=== PATIENT | female | born 1950 | race Caucasian/White ===

== ENCOUNTER → 2016-09-25 18:45 | Outpatient (CLI) | payer OTHER ==
[2016-03-22 12:20] VITALS: BMI 23.1
[~2016-09-25 18:45] MED LIST: BAYER CHEWABLE81 MG PO; CELEXA10 MG PO; CO Q-10100 MG PO; DIOVAN HCT 320/1 TA2 PO; ELIQUIS2.5 MG PO; HYDROCODONE-APA1 TAB PO; OYSCO 500+D TAB1 TAB PO; PERCOCET 10/3251 TA1; PERCOCET 10/3251 TA1 PO; TRAZODONE HCL150 MG PO; ZOCOR20 MG PO; ZOFRAN ODT4 MG/UDTAB PO
== END | disposition home or self-care (01) ==
LOC: D.LABREF 18:45
DX: M16.12 Unilateral primary osteoarthritis, left hip (principal); Z11.8 Encounter for screening for other infectious and parasitic diseases

== ENCOUNTER 2016-10-18 09:30 | Inpatient (IN) | payer OTHER ==
[~2016-10-18] VITALS: Ht 165.1 cm; Wt 62.7 kg
[2016-10-18 09:14] LABS: BASOPHILS 0.4 % (0.0-2.0); EOSINOPHILS 3.5 % (0-7); HEMATOCRIT 42.8 % (36.0-48.0); HEMOGLOBIN 14.6 g/dL (12-16); LYMPHOCYTES 35.1 % (15-50); MCH 31.3 pg (26.0-34.0); MCHC 34.1 g/dL (31.0-37.0); MCV 91.8 fL (80.0-100.0); MONOCYTES 6.5 % (2-11); NEUTROPHILS 54.5 % (40-80); PLATELET COUNT 232 10x3/uL (130-400); RBC 4.66 10x6/uL (4.00-5.40); RDW 13.1 % (11.5-14.5); WBC 4.8 10x3/uL (4.8-10.8)
[2016-10-18 09:21] LABS: CALC OSMOLALITY 272 mosm/kg (275-300); CALCIUM 9.7 mg/dL (8.5-10.1); CARBON DIOXIDE 29.8 mmol/L (21.0-32.0); CHLORIDE - SERUM 99 mmol/L (98-107); CREATININE - SERUM 0.5 mg/dL (0.6-1.3); GLUCOSE 97 mg/dL (74-106); POTASSIUM - SERUM 3.4 mmol/L (3.5-5.1); SODIUM 137 mmol/L (136-145); UREA NITROGEN 10 mg/dL (7-18); eGFR NON AFRICAN AMERICAN > 90 mL/min (90-120)
[~2016-10-18 09:30] MED LIST changes: -ZOFRAN ODT4 MG/UDTAB PO
[2016-10-18 09:36] LABS: APPEARANCE CLEAR (CLEAR); APTT 28.4 SECONDS (22.8-39.4); BACTERIA FEW /hpf (NONE SEEN); BILIRUBIN NEGATIVE (NEGATIVE); COLOR STRAW (YELLOW); EPITHELIAL CELLS 0-5 /hpf (0-5); GLUCOSE NEGATIVE (NEGATIVE); KETONE MODERATE mg/dL (NEGATIVE); LEUKOCYTE ESTERASE 1+ (NEGATIVE); NITRITE NEGATIVE (NEGATIVE); PROTEIN NEGATIVE (NEGATIVE); RED CELLS - URINE 0-5 /hpf (0-5); SPECIFIC GRAVITY 1.005 (1.005-1.020); UROBILINOGEN NORMAL (NORMAL); WHITE CELLS - URINE 0-5 /hpf (0-5)
[2016-10-18 09:42] LABS: INR 0.9 (0.85-1.17); PROTIME 11.9 SECONDS (11.6-15.0)
[2016-10-22] VITALS (15 sets, daily range): BP systolic 99–150; BP diastolic 54–80; Ht 165.1 cm; Wt 62.7 kg
--- NOTE | 2016-10-22 10:15 | NUR ---
PATIENT RECEIVED TO FLOOR FROM PACU VIA BED. RESPIRATIONS EVEN AND UNLABORED. VITAL SIGNS STABLE. PATIENT RESTING WITH EYES CLOSED AND WAKES EASY WHEN SPOKE TO. SIDE RAILS UP X3. BED IN LOW POSITION. ICE PACK PLACED ON LEFT HIP. SCDS PLACED BILATERALLY. USE EXPLAINED. INCENTIVE SPIROMETER PROVIDED AND USE EXPLAINED. STATES UNDERSTANDING. BED ALARM ON. CALL LIGHT IN REACH. WILL CONTINUE TO MONITOR.
--- NOTE | 2016-10-22 11:20 | NUR ---
PATIENT ALERT IN BED VISITING WITH GUESTS. RESPIRATIONS EVEN AND UNLABORED. VITAL SIGNS STABLE. DENIES NEEDS. SIDE RAILS UP X3. BED IN LOW POSITION. CALL LIGHT IN REACH. BED ALARM ON.
--- NOTE | 2016-10-22 14:20 | NUR ---
ALERT IN BED VISITING WITH FAMILY. NO SIGNS OF DISTRESS NOTED. DENIES NEEDS. SIDE RAILS UP X2. BED IN LOW POSITION. CALL LIGHT IN REACH.
--- NOTE | 2016-10-22 15:11 | OP ---
PATIENT NAME: DONY BARRIENTOS MEDICAL RECORD: [id number] :[birth year] LOCATION:[id number] ADMISSION DATE:10/22/16 SURGEON: BECK ONEAL MD DATE OF OPERATION: 10/22/2016 PREOPERATIVE DIAGNOSIS: Degenerative arthritis of the left hip. POSTOPERATIVE DIAGNOSIS: Degenerative arthritis of the left hip. PROCEDURE: Left total hip arthroplasty. SURGEON: Beck Oneal MD. ANESTHESIA: General. INTRAOPERATIVE COMPLICATIONS: None. IMPLANTS USED: [place] total hip Accolade II size 3 stem, size 52 cup with a size -2.5 ceramic Biolox head. ESTIMATED BLOOD LOSS: 100 cc. OPERATIVE SUMMARY IN DETAIL: After obtaining the appropriate preoperative orthopedic surgery consent as well as anesthetic consultation, evaluation and clearance, the patient was brought to the operating room and placed on the operating table in supine position. After adequate general laryngeal mask airway anesthesia was administered, the patient was placed in a right lateral decubitus position. All pressure points were well padded to include down leg peroneal pad as well as axillary roll. The patient was held firmly to the operating table using the vacuum pack suction system. Left lower extremity and hip were then prepped and draped in a routine sterile fashion. Curvilinear incision was made over the greater trochanter, taken down the level of the IT band, which was split in line with fibers of the IT band to reveal the gluteus medius and minimus. These were reflected anteriorly. The hip capsule was split in a T-type fashion for later reapproximation. The hip was dislocated and femoral neck cut was made using the femoral neck cutting guide. Acetabulum was exposed. Serial and sequential reaming was done for a size 52. It was put in place with good capture. Polyethylene was put into place and checked. Attention was then turned to the femur. Serial and sequential reaming and broaching were followed by placement of the size 3 femoral stem. Trials were undertaken and it was felt that -2.5 was the most appropriate. This was located in place with good fit and fill. Intraoperative radiographs were taken at this point and showed good position and placement of all components. The wound was copiously irrigated. The hip capsule was closed with #2 Ethibond followed by transosseous reapproximation of the gluteus medius and minimus back to the greater trochanter. IT band was then closed likewise with #2 Ethibond followed by #1 Vicryl, 2-0 Vicryl, and skin todd. Sterile dressings were applied. The patient was awakened, LMA was removed. She was taken to recovery room in stable condition. All final needle and sponge counts were correct. TRANSINT:[id number] Voice Confirmation ID: [id number] DOCUMENT ID: [id number] OPERATIVE REPORT [id number] DONY BARRIENTOS MD, BECK JARQUIN at 1511 CC: [id number] DICTATION DATE: 10/22/16 0942 LENS EXAMINER: 10/22/16 1123 ADM IN [facility] [address] [id number]
--- NOTE | 2016-10-22 17:09 | NUR ---
ALERT IN BED WITH FAMILY PRESENT. C/O PAIN 11/19 TO SURGICAL SITE. PERCOCET ADMINISTERED PER PRN ORDER. NO FURTHER NEEDS VOICED. SIDE RAILS UP X2. BED IN LOW POSITION. CALL LIGHT IN REACH.
--- NOTE | 2016-10-23 01:21 | NUR ---
REC'D. IN BED VISITORS AT BEDSIDE.DRSG. LEFT HIP DRY AND INTACT. MINIMAL SWELLING TO THIGH FOOT PINK AND WARM PEDAL PULSE PRESENT WIGGLES TOES AND DORSIFLEXES.NUMBNESS/CALF PAIN OR TENDERNESS.WILL CONTINUE TO MONITOR FOR ANY CHGES.AND FOLLOW CURRENT PLAN OF CARE.ENCOURAGED INCENT. SPIR. WHILE AWAKE TURNS SELF WITHOUT DIFFICULTY
[2016-10-23 04:00] VITALS: BP 98/42
--- NOTE | 2016-10-23 05:05 | NUR ---
LYING IN BED RESTING WITH EYES CLOSED, RESP WITH EASE, DSG TO L HIP CDI, FALL PRECAUTIONS IN PLACE, CL IN REACH
[2016-10-23 06:33] LABS: HEMATOCRIT 28.5 % (36.0-48.0); HEMOGLOBIN 9.4 g/dL (12-16); MCH 30.6 pg (26.0-34.0); MCV 92.8 fL (80.0-100.0); MEAN PLATELET VOLUME 10.2 fL (7.4-10.4); RBC 3.07 10x6/uL (4.00-5.40); RDW 13.4 % (11.5-14.5); WBC 7.9 10x3/uL (4.8-10.8)
--- NOTE | 2016-10-23 07:20 | NUR ---
PATIENT RECEIVED ALERT IN LOW [place] POSITION. NO SIGNS OF DISTRESS NOTED. AT BEDSIDE. DENIES PAIN. SIDE RAILS UP X3. BED IN LOW POSITION. CALL LIGHT IN REACH.
--- NOTE | 2016-10-23 08:23 | NUR ---
PATIENT ALERT IN BED EATING BREAKFAST. NO SIGNS OF DISTRESS NOTED. SCHEDULED MEDICATION ADMINISTERED WELL PRN PERCOCET. NO FURTHER NEEDS VOICED. SIDE RAILS UP X2. BED IN LOW POSITION. CALL LIGHT IN REACH.
--- NOTE | 2016-10-23 08:24 | NUR ---
* Is the patient Alert and Oriented? Yes 0 * How many steps to enter\exit or inside your home? 2 0 * PCP ALEXANDER [address] 0 * Pharmacy [facility] in [place] 0 * Preadmission Environment Home with Family 0 * ADLs Independent 0 * Equipment Crutch Rolling Walker 0 * List name and contact numbers for known caregivers / representatives who currently or will assist patient after discharge: Spouse - Phong Walker [phone] Daughter - Jessica Paniagua [phone] 0 * Additional services required to return to the preadmission environment? Yes 0 * Can the patient safely return to the preadmission environment? Yes 0 * Has this patient been hospitalized within the prior 30 days at any hospital? No 10/23/2016 8:36 DCP: Discharge Planning Patient Name: DONY WALKER Admission Status: Elective Accout number: [id number] Admission Date: 10-22-2016 : 1950 Admission Diagnosis: Attending: LUÍS Current LOS: 1 Anticipated DC Date: 10-24-2016 Planned Disposition: Outpatient PT\OT Primary Insurance: [facility] [employer] Discharge Planning Comments: CM met with patient to assess dc plans/needs. Patient states she lives at home with her , Phong. She reports she is independent with all ADL's & IADL's. She has crutches and a rolling walker at home. At dc, she will return home with her . She has chosen to go to [facility] the [facility] for outpatient physical therapy. Appt. scheduled 10/26 @ 0800. Anticipate DC tomorrow afternoon. CM will follow. Die Keeper: Asuncion Jacobsen
[2016-10-23 09:10] LABS: ALBUMIN 2.6 g/dL (3.4-5.0); ALKALINE PHOSPHATASE 43 U/L (46-116); ALT (SGPT) 23 U/L (10-68); CALC OSMOLALITY 273 mosm/kg (275-300); CARBON DIOXIDE 28.4 mmol/L (21.0-32.0); CHLORIDE - SERUM 104 mmol/L (98-107); CREATININE - SERUM 0.6 mg/dL (0.6-1.3); GLUCOSE 114 mg/dL (74-106); POTASSIUM - SERUM 3.3 mmol/L (3.5-5.1); PROTEIN - SERUM 5.1 g/dL (6.4-8.2); SODIUM 137 mmol/L (136-145); UREA NITROGEN 9 mg/dL (7-18); eGFR NON AFRICAN AMERICAN > 90 mL/min (90-120)
--- NOTE | 2016-10-23 10:00 | NUR ---
SITTING UP IN CHAIR ALERT AND TALKING ON PHONE. NO SIGNS OF DISTRESS NOTED. CALL LIGHT IN REACH. DENIES NEEDS.
--- NOTE | 2016-10-23 12:50 | NUR ---
PERCOCET ADMINISTERED PER PRN ORDER. CALL LIGHT IN REACH. DENIES NEEDS.
[2016-10-23 13:05] VITALS: BP 117/61
--- NOTE | 2016-10-23 14:05 | NUR ---
C/O INDIGESTION. MYLANTA ADMINISTERED PER PRN ORDER. NO FURTHER NEEDS. SIDE RAILS UP X2. BED IN LOW POSITION. CALL LIGHT IN REACH.
--- NOTE | 2016-10-23 16:08 | NUR ---
10/23/2016 16:07 DCP: Discharge Planning Patient Name: DONY BARRIENTOS Encounter No: [id number] : 1950 Primary Insurance: [facility] Anticipated DC Date: 10-24-2016 Planned Disposition: Outpatient PT\OT External Planned Provider: [facility] DCP follow-up note: Patient and family in agreement with discharge plan. No changes to plan. Case management will follow and assist as needed. Asuncion Jacobsen
--- NOTE | 2016-10-23 17:00 | NUR ---
ALERT IN BED TALKING ON PHONE. NO SIGNS OF DISTRESS NOTED. SIDE RAILS UP X2. BED IN LOW POSITION. CALL LIGHT IN REACH.
[2016-10-23 17:41] VITALS: BP 123/60
[2016-10-23 20:00] VITALS: BP 130/68
--- NOTE | 2016-10-23 20:29 | NUR ---
rec'd. in bed. drsg. dry and intact left hipminimal swelling thigh soft and palable.foot pink and warm pedal pulse present,wiggles toes and dorsiflexes.denies numbness,tingling,calf pain or tenderness.heels bridged.states needs to void,refuses bsc. used bedpan. will continue to monitor for any chges in neurovascular status and follow current plan of care
[2016-10-24] VITALS: BP 129/63
[2016-10-24 04:00] VITALS: BP 133/72
[2016-10-24 06:11] LABS: BASOPHILS 0.1 % (0.0-2.0); EOSINOPHILS 1.5 % (0-7); HEMATOCRIT 31.6 % (36.0-48.0); HEMOGLOBIN 10.4 g/dL (12-16); IMMATURE GRANULOCYTES 0.4 % (0-5); LYMPHOCYTES 13.7 % (15-50); MCH 30.4 pg (26.0-34.0); MCHC 32.9 g/dL (31.0-37.0); MCV 92.4 fL (80.0-100.0); MEAN PLATELET VOLUME 10.3 fL (7.4-10.4); MONOCYTES 10.8 % (2-11); NEUTROPHILS 73.5 % (40-80); PLATELET COUNT 222 10x3/uL (130-400); RBC 3.42 10x6/uL (4.00-5.40); RDW 13.5 % (11.5-14.5)
[2016-10-24 07:06] LABS: ALBUMIN 2.7 g/dL (3.4-5.0); ALKALINE PHOSPHATASE 51 U/L (46-116); ALT (SGPT) 23 U/L (10-68); CALC OSMOLALITY 273 mosm/kg (275-300); CALCIUM 8.2 mg/dL (8.5-10.1); CARBON DIOXIDE 28.6 mmol/L (21.0-32.0); CHLORIDE - SERUM 103 mmol/L (98-107); CREATININE - SERUM 0.5 mg/dL (0.6-1.3); GLUCOSE 102 mg/dL (74-106); POTASSIUM - SERUM 3.7 mmol/L (3.5-5.1); SODIUM 138 mmol/L (136-145); UREA NITROGEN 7 mg/dL (7-18); eGFR NON AFRICAN AMERICAN > 90 mL/min (90-120)
--- NOTE | 2016-10-24 07:15 | NUR ---
REPORT RECEIVED FROM SECURITY ENGINEER NURSE. CALL LIGHT IN REACH.
--- NOTE | 2016-10-24 07:45 | NUR ---
PLACED ON AND OFF BEDPAN.
--- NOTE | 2016-10-24 08:14 | NUR ---
ASSESSMENT COMPLETED. AM MEDS GIVEN EXCEPT FOR BP D/T ORDER TO [facility] IF SBP IS LESS THAN 140. ICE PACK FILLED AND PLACED TO LEFT HIP. ZOFRAN ODT PER C/O NAUSEA. BED ALARM ON. IN ROOM. IS AT BEDSIDE. ALEXANDER BLAKE, IN ROOM. CALL LIGHT IN REACH. WILL CONTINUE WITH PLAN OF CARE.
[2016-10-24] MEDS ORDERED: ELIQUIS2.5 MG PO (08:15)
[2016-10-24] MEDS ORDERED: PERCOCET 10/3251 TA1 PO (08:15)
[2016-10-24 08:20] VITALS: BP 122/61
[2016-10-24] MEDS ORDERED: ZOFRAN ODT4 MG/UDTAB PO (08:28)
--- NOTE | 2016-10-24 09:15 | NUR ---
AMBULATED IN [place] AND UP THE STAIRS WITH PT. TOLERATED WELL.
--- NOTE | 2016-10-24 09:20 | NUR ---
CM REASSESSMENT NOTE: PATIENT IS DISCHARGING TODAY-SPOUSE DRIVING HER HOME. PATIENT CONFIRMED APPT. WITH OP PT IN [place]. PATIENT HAS NO OTHER NEEDS FOR DISCHARGE.
--- NOTE | 2016-10-24 10:01 | NUR ---
PERCOCET PO PER C/O PAIN OF 6.
--- NOTE | 2016-10-24 10:25 | NUR ---
IV DC'D WITH TIP INTACT.
--- NOTE | 2016-10-24 10:54 | NUR ---
DRSG TO LEFT HIP REMOVED, INCISION CLEANSED WITH BETADINE, AND NEW DRSG APPLIED. RXs FOR PERCOCET, ZOFRAN, AND ELIQUIS HANDED TO PATIENT. DC INSTRUCTIONS EXPLAINED TO PATIENT AND . BOTH VERBALIZED UNDERSTANDING. OFFERED PATIENT HELP WITH GETTING DRESSED BUT SHE STATED HER WILL HELP HER. WILL CALL WHEN SHE IS DRESSED.
--- NOTE | 2016-10-24 11:20 | NUR ---
PT BEING D/C HOME AT THIS TIME. WHEELED DOWNSTAIRS. DENIES QUESTIONS OR CONCERNS RELATED TO D/C INSTRUCTIONS.
--- NOTE | 2016-10-24 11:25 | NUR ---
DC'D TO VEHICLE VIA WC WITH .
== END 2016-10-24 11:25 | disposition home or self-care (01) | DRG 470 ==
LOC: D.SDCHOLD 09:30 → D.MS 10-22 05:15 → D.SDCHOLD 10-22 05:15 → D.MS 10-22 09:47
PROVIDERS: Family Medicine; ADMIT Orthopaedic Surgery
PROC: 0SRB03Z Replacement of Left Hip Joint with Ceramic Synthetic Substitute, Open Approach (ICD-10-PCS; principal; 2016-10-22 07:30)
DX: M16.12 Unilateral primary osteoarthritis, left hip (principal); D62 Acute posthemorrhagic anemia; I10 Essential (primary) hypertension; E78.5 Hyperlipidemia, unspecified; E87.6 Hypokalemia